=== PATIENT | male | born 1970 | race Caucasian/White ===

== ENCOUNTER 2023-01-12 16:21 | Emergency (ER) | payer MEDICAID, SELFPAY ==
--- NOTE | 2023-01-12 16:43 | ED.GENADULT ---
HPI - General Adult General Chief complaint: Medical Clearance Stated complaint: Ran out of meds Source: patient and other ( group captain) Mode of arrival: ambulatory Limitations: no limitations History of Present Illness HPI narrative: this is a 52-year-old presenting requesting a medication refill on his home medications, patient is in the process of finding a new PCP and is new to this longterm he is currently in therefore he does not have medications due to running out. No medical complaints at this time. Provided me with a verified medication list from the longterm. Related Data Previous Rx's Medication Instructions Recorded amlodipine 10 mg tablet 10 mg PO DAILY 20 days #20 tabs 01/12/23 aspirin 81 mg tablet,delayed 81 mg PO DAILY 20 days #20 tabs 01/12/23 release atorvastatin 80 mg tablet 80 mg PO DAILY 20 days #20 tabs 01/12/23 baclofen 5 mg tablet 5 mg PO BID 20 days #40 tabs 01/12/23 docusate sodium 100 mg capsule 100 mg PO DAILY PRN constipation 01/12/23 (Colace) #20 caps duloxetine 40 mg capsule,delayed 40 mg PO BID 20 days #40 caps 01/12/23 release gabapentin 100 mg capsule 200 mg PO BEDTIME 20 days #40 caps 01/12/23 labetalol 100 mg tablet 100 mg PO BID 20 days #40 tabs 01/12/23 melatonin 3 mg capsule 3 mg PO BEDTIME PRN sleep 20 days 01/12/23 #20 caps pantoprazole 40 mg tablet,delayed 40 mg PO DAILY 20 days #20 tabs 01/12/23 release (Protonix) sennosides 17.2 mg tablet 17.2 mg PO BEDTIME PRN 01/12/23 constipation 20 days #20 tabs Allergies Allergy/AdvReac Type Severity Reaction Status Date / Time No Known Allergies Allergy Verified 01/12/23 16:44 Review of Systems Review of Systems: Constitutional : No Weight loss, No Fever, No Chills, No Fatigue, No Malaise ENT/Mouth : No sore throat, No Rhinorrhea Eyes: No Eye Pain, No Swelling, No Redness Cardiovascular : No Chest Pain, No SOB, No Dyspnea on Exertion, No Orthopnea, No Edema, No Palpitations Respiratory : No Cough, No Sputum, No Wheezing Gastrointestinal : No Nausea, No Vomiting, No Diarrhea, No Constipation, No abdominal Pain, No Hematochezia, No Melena Genitourinary : No Dysuria, No Urinary Frequency, No Hematuria, Musculoskeletal : No joint pain, No Myalgias, No Joint Swelling Skin : No Skin Lesions, No rash Neuro : No Weakness, No Numbness, No Dizziness, No Headache Psych : No Anxiety/Panic, No Depression All other systems reviewed and are negative Yes all other systems are reviewed and are negative [facility] Past Medical History Attestation statement: The following information was validated with the patient. Source: old records reviewed and nursing notes reviewed Physical Exam ED Vital Signs: Vital signs stable Appearance: Alert.? Oriented X3.? No acute distress.? Head: Normocephalic, atraumatic, no step-offs or deformities Eyes: Pupils equal, round and reactive to light.? CVS: Normal heart rate and rhythm.? Pulses normal.? Respiratory: No respiratory distress.? Breath sounds normal.? Abdomen: Soft and nontender.? Skin: Skin warm and dry.? Normal skin color.? Normal skin turgor.? Extremities: No lower extremity edema.? No calf ttp. 5/5 strength to bilateral upper and lower extremities Neuro: Oriented X 3.? No motor deficit.? No sensory deficit. CN 2-12 intact Medical Decision Making Medical Decision Making MDM Narrative: 52-year-old male from longterm presents for medication refill, brings and verified medication list with group captain. Currently not followed by PCP in this area is in the process of finding a new 1. Physical exam benign likely medication clearance. No signs of metabolic derangements, no medical complaints. Plan will flow medications. Advised him to follow-up with the PCP in the area. Educated patient on diagnosis and treatment plan, answered all question, patient verbalizes understanding. At this time patient will be discharged home, advised to return with new or worsening symptoms. Educated on worrisome signs and symptoms and when to return. At this time I feel comfortable discharge home. Differential Diagnosis Differential Diagnoses: The differential diagnosis associated with the presentation includes likely medication clearance. No signs of metabolic derangements, no medical complaints. Core Measures AMI core measures followed: Yes Measure exclusions: not indicated Critical Care Time Critical Care Time Critical Care Time: No Discharge Plan Discharge Clinical Impression: Medication refill Patient Disposition: Home, Self-Care Instructions: Medicine Refill (ED) Additional Instructions: Take your medications as prescribed. If you were prescribed antibiotics today, it is important that you take your medication to their entirety, do not skip any doses, do not finish them early. Follow-up with your primary care provider this week. Return to the emergency department with new or worsening symptoms. Such as fevers, chills, chest pain, shortness of breath, nausea, vomiting, dizziness, headache, vision changes, lethargy In case of emergency call 911 I was unable to fill the ropinirole and acetaminophen Prescriptions: New amlodipine 10 mg tablet 10 mg PO DAILY 20 Days Qty: 20 0RF atorvastatin 80 mg tablet 80 mg PO DAILY 20 Days Qty: 20 0RF duloxetine 40 mg capsule,delayed release(DR/EC) 40 mg PO BID 20 Days Qty: 40 0RF melatonin 3 mg capsule 3 mg PO BEDTIME PRN (Reason: sleep) 20 Days Qty: 20 0RF sennosides 17.2 mg tablet 17.2 mg PO BEDTIME PRN (Reason: constipation) 20 Days Qty: 20 0RF pantoprazole [Protonix] 40 mg tablet,delayed release (DR/EC) 40 mg PO DAILY 20 Days Qty: 20 0RF labetalol 100 mg tablet 100 mg PO BID 20 Days Qty: 40 0RF aspirin 81 mg tablet,delayed release (DR/EC) 81 mg PO DAILY 20 Days Qty: 20 0RF baclofen 5 mg tablet 5 mg PO BID 20 Days Qty: 40 0RF docusate sodium [Colace] 100 mg capsule 100 mg PO DAILY PRN (Reason: constipation) Qty: 20 0RF gabapentin 100 mg capsule 200 mg PO BEDTIME 20 Days Qty: 40 0RF Referrals: Physician,Unknown J [Primary Care Provider] - 2 days Stand Alone Forms: Work/School Release
[2023-01-12 16:48] VITALS: BP 111/76; PULSE 73; RESP 16; TEMP 37.1; O2SAT 98; BMI 26.6
== END 2023-01-12 17:05 | disposition home or self-care (01) ==
PROVIDERS: Emergency Provider Internal Medicine
DX: Z76.0 Encounter for issue of repeat prescription (principal)
CPT/HCPCS: 99282